=== PATIENT | male | born 1955 | race Caucasian/White ===

== ENCOUNTER 2017-09-30 10:13 | Day surgery (SDC) | payer OTHER ==
[~2017-09-30 10:13] MED LIST: LIDOCAINE 2% (SDV) 5 ML INJ; PROPOFOL 200 MG INJ
[2017-09-30] MEDS ORDERED: SODIUM HYALURONATE 14 MG/ML SYG (10:36)
[2017-09-30] MEDS: MOXIFLOXACIN 0.5% 3 ML OPH OPER (10:59)
[2017-09-30] MEDS ORDERED: SOD CHLORIDE 0.9% 1,000 ML IV (11:00)
[2017-09-30] MEDS: PROPARACAINE 0.5% 15 ML OPH OPER (11:00)
[2017-09-30] MEDS: PHENYLephrine 2.5% 15 ML OPH OPER (11:01)
[2017-09-30] MEDS: TROPICAMIDE 1% 3 ML OPH OPER (11:01)
[2017-09-30] MEDS: PREDNISOLONE ACET 1% 5 ML OPH OPER (11:02)
[2017-09-30] MEDS ORDERED: METOCLOPRAMIDE 10 MG INJ (12:10)
[2017-09-30] MEDS: TETRACAINE 0.5% 4 ML OPH LEFT EYE (12:15)
[2017-09-30] MEDS: LIDOCAINE 1% (MPF) 10 ML INJ INJ (12:15)
[2017-09-30] MEDS: SODIUM HYALURONATE 14 MG/ML SYG IO ×2 (12:15)
[2017-09-30] MEDS ORDERED: TOBRAMYCIN/DEXAMETH 3.5 GM OPH OINT (12:15)
[2017-09-30] MEDS ORDERED: LIDOCAINE 1% (MPF) 10 ML INJ (12:16)
[2017-09-30] MEDS ORDERED: EPINEPHrine 1 MG INJ (12:16)
[2017-09-30] MEDS ORDERED: FAMOTIDINE 20 MG INJ (12:32)
[2017-09-30] MEDS ORDERED: ONDANSETRON 4 MG INJ (12:32)
[2017-09-30] MEDS ORDERED: ONDANSETRON 4 MG INJ IV (13:00)
[2017-09-30] MEDS ORDERED: FENTAnyl 50 MCG/ML VIAL IV (13:00)
[2017-09-30] MEDS ORDERED: LABETALOL HCL 20MG INJ IV (13:00)
== END 2017-09-30 14:25 | disposition home or self-care (01) ==
LOC: SDS 10:13
DX: H25.12 Age-related nuclear cataract, left eye (principal); K21.9 Gastro-esophageal reflux disease without esophagitis; J44.9 Chronic obstructive pulmonary disease, unspecified; Z87.891 Personal history of nicotine dependence
CPT/HCPCS: 66984

== ENCOUNTER 2017-12-19 08:45 | Day surgery (SDC) | payer OTHER ==
[2017-12-19] MEDS: BUPIVACAINE 0.25% (MPF) 30 ML INJ INJ (08:04)
[2017-12-19] MEDS: POLYMYXIN/BACITRACIN 1L IRRIG IRR (08:04)
[~2017-12-19 08:45] MED LIST changes: +CEFAZOLIN 1 GM INJ; +CEFAZOLIN 2 GM/50 ML (PMX) 50 ML IVPB; +LABETALOL HCL 20MG INJ; -LIDOCAINE 2% (SDV) 5 ML INJ; -PROPOFOL 200 MG INJ; +SOD CHLORIDE 0.9% 1,000 ML IV; +SUCCINYLCHOLINE CHLORIDE 100 MG/5 ML SYG IV; +hydrALAzine 20 MG INJ
[2017-12-19] MEDS ORDERED: LIDOCAINE 2% (SDV) 5 ML INJ ×2 (09:46)
[2017-12-19] MEDS ORDERED: PROPOFOL 20 ML (09:46)
[2017-12-19] MEDS ORDERED: GLYCOPYRROLATE 0.4 MG INJ (09:46)
[2017-12-19] MEDS ORDERED: NEOSTIGMINE 3 MG/3 ML SYRINGE (09:46)
[2017-12-19] MEDS ORDERED: ROCURONIUM 50 MG INJ (09:46)
[2017-12-19] MEDS ORDERED: FENTAnyl 50 MCG/ML VIAL (09:47)
[2017-12-19] MEDS ORDERED: MIDAZOLAM 1 MG/ML 2 ML INJ (09:47)
[2017-12-19] MEDS ORDERED: DEXAMETHASONE 4 MG/ML 1 ML INJ (09:55)
[2017-12-19] MEDS ORDERED: ONDANSETRON 4 MG INJ (09:55)
[2017-12-19] MEDS ORDERED: FLUMAZENIL 0.5 MG INJ (10:05)
[2017-12-19] MEDS ORDERED: BUPIVACAINE 0.25% (MPF) 30 ML INJ (10:20)
[2017-12-19] MEDS ORDERED: POLYMYXIN/BACITRACIN 1L IRRIG (10:20)
[2017-12-19] MEDS ORDERED: OXYCODONE/ACETAMINOPHEN (5/325) TAB PO ×2 (10:30)
[2017-12-19] MEDS ORDERED: ONDANSETRON 4 MG INJ IV (10:30)
[2017-12-19] MEDS ORDERED: MIDAZOLAM 1 MG/ML 2 ML INJ IV (10:30)
[2017-12-19] MEDS ORDERED: hydrALAzine 20 MG INJ IV (10:30)
[2017-12-19] MEDS ORDERED: MEPERIDINE 25 MG INJ IV (10:30)
[2017-12-19] MEDS ORDERED: HYDROmorphONE 1 MG/5 ML IV SYRINGE IV ×2 (10:30)
[2017-12-19] MEDS ORDERED: morphine (1 MG/ML) 10ML SYRINGE IV ×3 (10:30)
[2017-12-19] MEDS ORDERED: DIPHENHYDRAMINE 50 MG INJ IV (10:30)
[2017-12-19] MEDS ORDERED: LABETALOL HCL 20MG INJ IV (10:30)
[2017-12-19] MEDS ORDERED: EPHEDrine SULFATE 50 MG/5 ML SYG IV (10:30)
[2017-12-19] MEDS ORDERED: ATROPINE 1 MG/10 ML SYRINGE IV (10:30)
[2017-12-19] MEDS ORDERED: FENTAnyl 50 MCG/ML VIAL IV ×2 (10:30)
[2017-12-19] MEDS ORDERED: ALBUTEROL 0.083% (NEB) 2.5 MG/3 ML AMP (10:59)
[2017-12-19] MEDS: HYDROmorphONE 1 MG/5 ML IV SYRINGE IV (12:44)
[2017-12-19] MEDS: HYDROCODONE/APAP (5/325) TAB PO (13:37)
== END 2017-12-19 14:30 | disposition home or self-care (01) ==
LOC: SDS 08:45
DX: K40.31 Unilateral inguinal hernia, with obstruction, without gangrene, recurrent (principal)
CPT/HCPCS: 49521; 88307